=== PATIENT | female | born 1965 | race Hispanic/Latino ===

== ENCOUNTER → 2018-03-31 | Outpatient (CLI) | payer BC ==
[~2018-03-31] MED LIST: DULO60CA44 PO; FLUT1DIS IH; GABA-531 PO; LEVO50TA6 PO; MAGN27TA2 PO; MONT10TA21 PO; TRAM50TA4 PO; TRAZ-185 PO
== END | disposition home or self-care (01) ==
LOC: OIH 11:31
PROVIDERS: ATTEND Family Medicine
DX: Z01.818 Encounter for other preprocedural examination (principal)
CPT/HCPCS: 71046

== ENCOUNTER → 2019-10-13 | Outpatient (CLI) | payer BC | END | disposition home or self-care (01) | LOC: OIH 10:09 | PROVIDERS: ATTEND Family Medicine | DX: R05 Cough (principal) | CPT/HCPCS: 71046 ==

== ENCOUNTER → 2020-08-08 | Outpatient (CLI) | payer BC | END | disposition home or self-care (01) | LOC: RAH 15:00 | PROVIDERS: ATTEND Family Medicine | DX: R10.2 Pelvic and perineal pain (principal); Z90.710 Acquired absence of both cervix and uterus | CPT/HCPCS: 76856 ==

== ENCOUNTER → 2023-10-20 | Outpatient (CLI) | payer OTHER ==
[~2023-10-20] MED LIST changes: -DULO60CA44 PO; +DULO60CA45 PO; +FLUT1DIS4 PUFF; +MELO-106 PO; +MONT-46 PO; +MONT-47 PO; -MONT10TA21 PO
== END | disposition home or self-care (01) ==
LOC: RAH 07:35
PROVIDERS: ATTEND Internal Medicine Cardiovascular Disease
DX: Z13.6 Encounter for screening for cardiovascular disorders (principal)
CPT/HCPCS: 75571

== ENCOUNTER → 2024-10-31 | Outpatient (CLI) | payer BC ==
--- NOTE | 2024-10-31 11:55 | HMCIMG ---
Exam Type: WRIST COMP 3+VWS LT Clinical Information: DE QUERVAIN'S TENOSYNOUTIS LEFT Comparison: None Findings: The bone examination is unremarkable. No fractures or dislocations are seen. No radiopaque foreign bodies are noted. Soft tissues are preserved. IMPRESSION: Normal examination.
== END | disposition home or self-care (01) ==
LOC: RAH 11:22
PROVIDERS: ATTEND Family Medicine
DX: M65.4 Radial styloid tenosynovitis [de Quervain] (principal)
CPT/HCPCS: 73110

== ENCOUNTER → 2025-06-05 | Outpatient (CLI) | payer BC ==
--- NOTE | 2025-06-06 00:31 | HMCIMG ---
STUDY: X-RAY OF THE LUMBAR SPINE, 5 VIEWS HISTORY: Idiopathic peripheral neuropathy. TECHNIQUE: Five-view radiographic series of the lumbar spine is submitted for interpretation. COMPARISON: None provided. FINDINGS: Bones and joints: Mild dextroscoliosis of the upper lumbar spine. Mild diffuse osteopenia. Multilevel degenerative changes are present, characterized by endplate osteophytosis and reduction in intervertebral disc heights throughout the lumbar spine, more pronounced at the mid to lower lumbar levels. No acute fracture, vertebral body collapse, or high-grade spondylolisthesis is identified. Overall lumbar alignment is otherwise preserved. Soft tissues: Visualized paraspinal soft tissues are unremarkable. No abnormal soft tissue calcification or radiopaque foreign body is seen. IMPRESSION: * Mild dextroscoliosis of the upper lumbar spine with multilevel lumbar spondylosis (osteophyte formation and disc height loss) and mild osteopenia, compatible with chronic degenerative change. * No radiographic evidence of acute lumbar spine fracture or gross malalignment. * In the setting of idiopathic peripheral neuropathy and lumbar degenerative changes, MRI of the lumbar spine is recommended to evaluate for spinal canal and foraminal stenosis and potential nerve root compression. /[place]
== END | disposition home or self-care (01) ==
LOC: RAH 08:34
PROVIDERS: ATTEND Family Medicine
DX: M47.816 Spondylosis without myelopathy or radiculopathy, lumbar region (principal); G60.9 Hereditary and idiopathic neuropathy, unspecified; M41.86 Other forms of scoliosis, lumbar region; M25.78 Osteophyte, vertebrae; M85.88 Other specified disorders of bone density and structure, other site
CPT/HCPCS: 72110